=== PATIENT | male | born 1995 | race Caucasian/White ===

== ENCOUNTER 2017-12-28 13:58 | Emergency (ER) | payer OTHER ==
[2017-12-28 13:58] VITALS: BP 151/84
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
[2017-12-28] MEDS ORDERED: NAPR-683 PO (14:49)
== END 2017-12-28 15:00 | disposition home or self-care (01) ==
LOC: ER 13:58
DX: S16.1XXA Strain of muscle, fascia and tendon at neck level, initial encounter (principal); S50.12XA Contusion of left forearm, initial encounter; V89.2XXA Person injured in unspecified motor-vehicle accident, traffic, initial encounter; Y93.89 Activity, other specified; Y99.8 Other external cause status; Y92.488 Other paved roadways as the place of occurrence of the external cause
CPT/HCPCS: 72040; 73060; 99284